=== PATIENT | male | born 1990 | race Caucasian/White ===

== ENCOUNTER 2016-08-13 20:01 | Inpatient (IN) | payer OTHER ==
[~2016-08-13] VITALS: Ht 165.1 cm; Wt 70.3 kg
[2016-08-13 20:54] LABS: HEMOGLOBIN 15.6 gm/dl (14.0-17.5); RED BLOOD COUNT 5.11 M/UL (4.20-5.50); WHITE BLOOD COUNT 10.1 K/UL (4.5-11.0)
[2016-08-13 21:14] LABS: BUN/CREATININE RATIO 21 (0-10)
[2016-08-14 06:35] LABS: HEMOGLOBIN 14.2 gm/dl (14.0-17.5); RED BLOOD COUNT 4.73 M/UL (4.20-5.50); WHITE BLOOD COUNT 11.2 K/UL (4.5-11.0)
[2016-08-14 06:44] LABS: BUN/CREATININE RATIO 24 (0-10)
[2016-08-15 09:08] LABS: BUN/CREATININE RATIO 20 (0-10)
[2016-08-15 09:18] LABS: HEMOGLOBIN 14.2 gm/dl (14.0-17.5); RED BLOOD COUNT 4.6 M/UL (4.20-5.50); WHITE BLOOD COUNT 8.6 K/UL (4.5-11.0)
[2016-08-16 05:51] LABS: RED BLOOD COUNT 4.29 M/UL (4.20-5.50); WHITE BLOOD COUNT 7.4 K/UL (4.5-11.0)
[2016-08-16 06:13] LABS: BUN/CREATININE RATIO 15 (0-10)
[2016-08-17 05:55] LABS: BUN/CREATININE RATIO 15 (0-10)
== END 2016-08-18 16:40 | disposition home or self-care (01) | DRG 580 ==
LOC: ER1 20:01 → M/S 21:30 → ZEROF 21:30 → M/S 22:44
PROVIDERS: Hospitalist; Internal Medicine; Orthopaedic Surgery; Physician Assistant Medical; ADMIT Internal Medicine
PROC: 0JBJ0ZZ Excision of Right Hand Subcutaneous Tissue and Fascia, Open Approach (ICD-10-PCS; principal; 2016-08-15 11:00)
DX: L02.511 Cutaneous abscess of right hand (principal); L03.113 Cellulitis of right upper limb; B95.62 Methicillin resistant Staphylococcus aureus infection as the cause of diseases classified elsewhere; J45.20 Mild intermittent asthma, uncomplicated; F17.200 Nicotine dependence, unspecified, uncomplicated
CPT/HCPCS: 36415; 80048; 80053; 80202; 85025; 85027; 86140; 87040; 87070; 87075; 87077; 87186; 87205; 96374; 99284; J1885; J2250; J2270; J2405; J3370; J7030; J7050; J7070; J7120

== ENCOUNTER → 2016-08-20 | Outpatient (CLI) | payer OTHER ==
[~2016-08-20] VITALS: Ht 190.5 cm; Wt 70.3 kg
== END ==
LOC: OPSV 12:00
DX: L02.511 Cutaneous abscess of right hand (principal); L03.113 Cellulitis of right upper limb
CPT/HCPCS: 96365; 96366; J2407; J7070

== ENCOUNTER 2016-09-02 16:55 | Emergency (ER) | payer OTHER ==
[2016-09-02 18:40] LABS: HEMOGLOBIN 13.9 gm/dl (14.0-17.5); RED BLOOD COUNT 4.69 M/UL (4.20-5.50); WHITE BLOOD COUNT 6.5 K/UL (4.5-11.0)
[2016-09-02 18:57] LABS: BUN/CREATININE RATIO 13 (0-10)
== END 2016-09-02 19:25 | disposition home or self-care (01) ==
LOC: ER1 16:55
PROVIDERS: Nurse Practitioner Family
DX: M79.1 Myalgia (principal); F17.210 Nicotine dependence, cigarettes, uncomplicated
CPT/HCPCS: 36415; 71020; 80053; 81001; 85025; 86140; 86403; 87040; 87086; 99283